=== PATIENT | male | born 1970 | race American Indian/Alaskan Native ===

== ENCOUNTER 2018-10-16 19:52 | Emergency (ER) | payer SELFPAY ==
[2018-10-16] MEDS ORDERED: NACL 0.9% 1000 ML 1,000 ML IV ONE (20:16)
--- NOTE | 2018-10-16 20:19 | Emergency Department Report ---
ED Headache HPI - General Chief Complaint: Headache Stated Complaint: HEADACHE/POSS OD Time Seen by Provider: 10/16/18 20:07 Exam Limitations: no limitations - History of Present Illness Initial Comments: 2 weeks h/o posterior headache, worse today, 10/10, pressure like, back of head, radiating to neck. no n/v, no fever, chills or night sweats. no significant past medical history except for tobacco abuse. patient states he took 20 x 800mg motrin in last 24 hrs d/t headache. c/o daily cough, recent wt loss. no focal weakness. Allergies/Adverse Reactions: Allergies No Known Allergies Allergy (Unverified 10/16/18 19:58) Home Medications: Ambulatory Orders No Known Home Medications [No Reported Home Medications] 10/16/18 ED Review of Systems ROS: Stated complaint: HEADACHE/POSS OD Other details as noted in HPI Comment: All other systems reviewed and negative Respiratory: cough. denies: shortness of breath Gastrointestinal: denies: nausea, vomiting Genitourinary: denies: urgency, dysuria Skin: denies: rash, lesions Neurological: headache ED Past Medical Hx - Past Medical History Previous Medical History?: No - Surgical History Past Surgical History?: No - Social History Smoking Status: Current Every Day Smoker Substance Use Type: None - Medications Home Medications: Home Medications Medication Instructions Recorded Confirmed Last Taken Type No Known Home Medications [No 10/16/18 10/16/18 Unknown History Reported Home Medications] ED Physical Exam - General Limitations: No Limitations General appearance: alert, in no apparent distress - Head Head exam: Present: atraumatic, normocephalic - Eye Eye exam: Present: normal appearance, PERRL, EOMI Pupils: Present: normal accommodation - ENT ENT exam: Present: normal exam, normal orophraynx - Neck Neck exam: Present: normal inspection - Respiratory Respiratory exam: Present: normal lung sounds bilaterally, respiratory distress - Cardiovascular Cardiovascular Exam: Present: regular rate, normal rhythm - GI/Abdominal GI/Abdominal exam: Present: soft, distended - External exam: Present: normal external exam - Extremities Exam Extremities exam: Present: normal inspection - Back Exam Back exam: Present: normal inspection, full ROM - Neurological Exam Neurological exam: Present: alert, oriented X3, CN II-XII intact - Psychiatric Psychiatric exam: Present: normal affect - Skin Skin exam: Present: warm ED Course Vital Signs 08/20/19 08/20/19 19:58 21:00 Temperature 98.5 F Pulse Rate 81 Respiratory 16 16 Rate Blood Pressure 142/90 O2 Sat by Pulse 96 96 Oximetry ED Medical Decision Making - Lab Data Result diagrams: 10/16/18 20:23 10/16/18 20:23 - Medical Decision Making ct head showed large cerebellar mass spoke with neurosurgery at [facility] who recommended icu transfer. discussed plan wit patient who agrees with it. Critical care attestation.: If time is entered above; I have spent that time in minutes in the direct care of this critically ill patient, excluding procedure time. ED Disposition Clinical Impression: Cerebellar mass Disposition: [id number]/TX-[id number] ANOTHER TYPE HLTHCARE Is pt being admited?: No Does the pt Need Aspirin: No Condition: Stable
[2018-10-16 20:39] LABS: Basophils # (Auto) 0.1 K/mm3 (0.0-0.1); Basophils % (Auto) 0.8 % (0.0-1.8); Eosinophils # (Auto) 0.2 K/mm3 (0.0-0.4); Eosinophils % (Auto) 1.8 % (0.0-4.3); Hematocrit 40.9 % (35.5-45.6); Hemoglobin 13.8 gm/dl (11.8-15.2); Lymphocytes # (Auto) 1.3 K/mm3 (1.2-5.4); Lymphocytes % (Auto) 15.5 % (13.4-35.0); Mean Corpuscular HGB Conc 34 % (32-34); Mean Corpuscular Volume 95 fl (84-94); Monocytes # (Auto) 0.5 K/mm3 (0.0-0.8); Monocytes % (Auto) 6.3 % (0.0-7.3); Platelet Count 277 K/mm3 (140-440); Red Blood Count 4.32 M/mm3 (3.65-5.03)
--- NOTE | 2018-10-16 20:49 | XRay Report ---
CHEST 1 VIEW INDICATION / CLINICAL INFORMATION: cough. COMPARISON: None available. FINDINGS: SUPPORT DEVICES: None. HEART / MEDIASTINUM: No significant abnormality. LUNGS / PLEURA: No acute abnormality. The lungs are clear. Suggestion of pleural blebs or other pulmo nary cystic lesion noted at the left apex. No pneumothorax. ADDITIONAL FINDINGS: No significant additional findings. IMPRESSION: 1. No acute findings. Signer Name: Charanjit Go MD Signed: 10/16/2018 8:45 PM Workstation Name: [id number]
[2018-10-16 21:38] LABS: Alanine Aminotransferase 8 units/L (7-56); BUN/Creatinine Ratio 9; Blood Urea Nitrogen 8 mg/dL (9-20); Calcium 9.5 mg/dL (8.4-10.2); Hemolysis Index 7
--- NOTE | 2018-10-16 21:46 | Cat Scan Report ---
CT HEAD WITHOUT CONTRAST INDICATION / CLINICAL INFORMATION: headache. TECHNIQUE: All CT scans at this location are performed using CT dose reduction for ALARA by means of automated e xposure control. COMPARISON: None available. FINDINGS: A large mass is present in the left cerebellar hemisphere where a 3.2 x 2.4 x 2.1 cm lesion is ident ified. There is a large amount of associated vasogenic edema which contributes to significant mass ef fect. There is compression and deformity of the fourth ventricle. Patient is at risk for development of hydrocephalus. In addition there is an absence of CSF attenuation from the superior cerebellar cis tern. There appears to be impending upward herniation of the cerebellar vermis through the tentorial incisure. I do not see evidence of tonsillar herniation at this time. Mass effect secondary to the le ft cerebellar mass and associated vasogenic edema produce compression of the posterior aspect of the danyell. The danyell is anteriorly displacement. There is effacement of the prepontine cistern. Vasogenic edema is present in both frontal lobes. In the left frontal lobe a 6 mm hyperdense mass is identified. Vasogenic edema in the right frontal lobe is also observed where a 6 mm hyperdense mass i s identified. Given the presence of multiple lesions possibility of a brain metastasis considered mos t likely explanation for these findings. Follow-up with MRI brain to be performed without and with in travenous contrast is advised. PARANASAL SINUSES / MASTOID AIR CELLS: Paranasal sinuses are free from inflammatory mucosal disease. Mastoid air cells are normally pneumatized. IMPRESSION: 1. Large left cerebellar hemispheric mass with prominent associated vasogenic edema and resultant mas s effect resulting in compression of the fourth ventricle. This patient is at risk for hydrocephalus. 2. Mass effect from the cerebellar tumor and associated edema has resulted in effacement of CSF atten uation from the superior cerebellar cistern. There is impending upward herniation of the cerebellar v ermis through the tentorial incisure. 3. Smaller lesions are present in both frontal lobes. Metastatic disease is the most likely explanati on for these findings. Critical result: Time of discovery 2024 Central standard time. Notification: I called a report of this study to Dr. Fletcher at the [facility] e mergency department. Need for urgent neurosurgical consultation was discussed. Signer Name: Jonatan Márquez MD Signed: 10/16/2018 9:41 PM Workstation Name: [id number]
[2018-10-16 21:47] LABS: Bilirubin,Urine NEG (Negative); Blood,Urine SM (Negative); Color,Urine Yellow (Yellow); Mucus,Urine FEW /HPF; Protein,Urine <15 mg/dL mg/dL (Negative); Urobilinogen,Urine < 2.0 mg/dL (<2.0)
[2018-10-16] MEDS ORDERED: DECADRON IV ONE (21:57)
[2018-10-16 22:00] LABS: Amphetamine Screen,Urine PRESUMPTIVE NEGATIVE; Benzodiazepines Screen,Urine PRESUMPTIVE NEGATIVE; Methadone Screen,Urine PRESUMPTIVE NEGATIVE; Opiate Screen,Urine PRESUMPTIVE NEGATIVE
[2018-10-16 22:13] LABS: Cannabinoid Screen,Urine PRESUMPTIVE POSITIVE; Cocaine Screen,Urine PRESUMPTIVE POSITIVE
[2018-10-16] MEDS ORDERED: ZOFRAN IV ONE (22:50)
[2018-10-16] MEDS ORDERED: MORPHINE IV ONE (22:50)
[2018-10-16] MEDS ORDERED: MORPHINE ONE (22:53)
[2018-10-17 00:32] VITALS: BP 130/83
== END 2018-10-17 00:38 | disposition other institution (70) ==
LOC: ED 19:52
DX: G93.89 Other specified disorders of brain (principal); F17.200 Nicotine dependence, unspecified, uncomplicated
CPT/HCPCS: 36415; 70450; 71045; 80053; 80307; 81001; 85025; 96361; 96374; 96375; 99285; J1100; J2270; J2405; J7030; 80320; G0480